=== PATIENT | male | born 1955 | race Caucasian/White ===

== ENCOUNTER 2016-10-08 08:16 | Day surgery (SDC) | payer SELFPAY ==
[~2016-10-08] VITALS: Ht 190.5 cm; Wt 111.1 kg
[2016-10-08] VITALS (7 sets, daily range): BP systolic 111–132; BP diastolic 64–87; PULSE 56–75; TEMP 96.8–97.2
[~2016-10-08 08:16] MED LIST: LEVAQUIN 750MG750 M1 PO
== END 2016-10-08 11:15 | disposition home or self-care (01) ==
LOC: SDCO 08:16
DX: Z12.11 Encounter for screening for malignant neoplasm of colon (principal); K64.0 First degree hemorrhoids
CPT/HCPCS: OP; J2250; J3010; J7030

== ENCOUNTER 2017-05-02 11:06 | Day surgery (SDC) | payer SELFPAY ==
[~2017-05-02] VITALS: Ht 191.8 cm; Wt 107.2 kg
[2017-05-02] VITALS (11 sets, daily range): BP systolic 122–142; BP diastolic 63–86; PULSE 56–85; TEMP 97–98.2
[2017-05-02] MEDS ORDERED: PROSCAR 5MG5 MG PO (11:55)
[2017-05-03 02:10] VITALS: BP 126/78; PULSE 91; TEMP 98.8
[2017-05-03 05:44] VITALS: BP 116/71; PULSE 65; TEMP 98.4
[2017-05-03 09:27] VITALS: BP 125/73; PULSE 80; TEMP 98
[2017-05-03 18:42] VITALS: BP 134/70; PULSE 76; TEMP 98.8
[2017-05-03 21:25] VITALS: BP 132/73; PULSE 80; TEMP 98.8
[2017-05-04 01:34] VITALS: BP 106/79; PULSE 78; TEMP 98.4
[2017-05-04 05:31] VITALS: BP 107/71; PULSE 88; TEMP 98.8
[2017-05-04 09:26] VITALS: BP 130/71; PULSE 81; TEMP 98.2
[2017-05-04 14:00] VITALS: BP 119/70; PULSE 70; TEMP 99
[2017-05-04 18:00] VITALS: BP 122/60; PULSE 82; TEMP 98.8
[2017-05-04 21:47] VITALS: BP 110/65; PULSE 83; TEMP 98.8
== END 2017-05-04 22:30 | disposition home or self-care (01) ==
LOC: SDCO 11:06 → SURG 15:09 → SDCO 05-04 22:30
DX: N40.1 Benign prostatic hyperplasia with lower urinary tract symptoms (principal); R33.8 Other retention of urine; N39.490 Overflow incontinence; E88.81 Metabolic syndrome and other insulin resistance; Z79.82 Long term (current) use of aspirin; Z68.29 Body mass index [BMI] 29.0-29.9, adult; Z80.8 Family history of malignant neoplasm of other organs or systems; R06.83 Snoring
CPT/HCPCS: OP; J0690; J1100; J1170; J2405; J2704; J2710; J3010; J7030